=== PATIENT | female | born 1940 | race Caucasian/White ===

== ENCOUNTER → 2018-03-03 | Outpatient (CLI) | payer MEDICARE ==
--- NOTE | 2018-03-03 11:53 | EST ---
EXERCISE STRESS DATE OF SERVICE: 03/03/2018 AGE: 77 SEX: Female HT: 5'5" WT: 163 PROTOCOL: STAGE: II DURATION OF EXERCISE: 6 minutes HEART RATE REST: 49 BLOOD PRESSURE REST: 126/51 MAXIMUM HEART RATE ACHIEVED: 107 MAXIMUM BLOOD PRESSURE: 165/86 85% MPHR: 122 100% MPHR: 144 METS: 7 INDICATIONS: Abnormal EKG. CLINICAL INFORMATION: Baseline EKG shows sinus bradycardia, normal axis, normal intervals. Patient exercised on Curt protocol for a total of 6 minutes achieving 7 METs, 74% of predicted maximal heart rate without chest pain or diagnostic ST-segment depression. The test was stopped at this level secondary to inability to exercise further. CONCLUSIONS: 1. Limited exercise tolerance. 2. Inconclusive EKG part of the stress test due to inability to attain target heart rate. MMODL / IJN: [id number] /
== END | disposition home or self-care (01) ==
LOC: RADNMMAIN 11:05
PROVIDERS: ATTEND Nurse Practitioner Family
DX: R93.1 Abnormal findings on diagnostic imaging of heart and coronary circulation (principal)
CPT/HCPCS: 93017

== ENCOUNTER 2018-03-07 18:22 | Emergency (ER) | payer MEDICARE ==
[2018-03-07 19:01] VITALS: RESP 16; TEMP 98.3
[2018-03-07] MEDS ORDERED: BACITRACIN OINT 1 EACH PACKET TOPICAL ONE (20:27)
--- NOTE | 2018-03-07 20:36 | ED ---
Lower Extremity Injury HPI - General Chief Complaint: Extremity Injury, Lower Stated Complaint: abrasion left leg (fell thru a deck) Time Seen by Provider: 03/07/18 20:24 Source: patient, RN notes reviewed Mode of arrival: wheelchair Limitations: no limitations - History of Present Illness Initial Comments: 77-year-old female sent emergency Department chief complaint of left leg injury. Patient states that she fell through a rotten board on her deck. She states that she fell up until she fell onto the ground just above her knee. She states her tetanus is up-to-date within last 6 months. Patient states she has abrasions on either side of her knee but she states she has mild knee discomfort. Patient denies any other injuries. - Related Data Allergies Allergy/AdvReac Type Severity Reaction Status Date / Time No Known Allergies Allergy Verified 03/07/18 18:57 Review of Systems ROS Statement: Those systems with pertinent positive or pertinent negative responses have been documented in the HPI. ROS Other: All systems not noted in ROS Statement are negative. Past Medical History Past Medical History: Hyperlipidemia History of Any Multi-Drug Resistant Organisms: None Reported Past Surgical History: Hysterectomy, Orthopedic Surgery Additional Past Surgical History / Comment(s): bladder susprension, B hand, L knee Past Psychological History: Depression Smoking Status: Former smoker Past Alcohol Use History: Rare Past Drug Use History: None Reported General Exam Limitations: no limitations General appearance: alert, in no apparent distress Neck exam: Present: normal inspection. Absent: tenderness, meningismus, lymphadenopathy Respiratory exam: Present: normal lung sounds bilaterally. Absent: respiratory distress, wheezes, rales, rhonchi, stridor Cardiovascular Exam: Present: regular rate, normal rhythm, normal heart sounds. Absent: systolic murmur, diastolic murmur, rubs, gallop, clicks Extremities exam: Present: other (Left leg there are superficial abrasions on the medial and lateral aspect of her knee there is no active bleeding patient is full range of motion of her knee there is mild ecchymosis noted leg is neurovascularly intact.) Skin exam: Present: warm, dry Course Vital Signs 03/07/18 18:57 Temperature 98.3 F Pulse Rate 54 L Respiratory 16 Rate Blood Pressure 136/61 O2 Sat by Pulse 98 Oximetry Medical Decision Making - Medical Decision Making 77-year-old female presented for left leg injury. Patient had x-rays show no acute injury or fracture to her left knee. Patient has superficial abrasions which are cleaned bacitracin applied. Patient will continue wound care at home and return for any worsening symptoms. Disposition Clinical Impression: Abrasion of leg, left, Contusion of knee Disposition: HOME SELF-CARE Condition: Stable Instructions: Abrasion (ED) Additional Instructions: Please return to the Emergency Department if symptoms worsen or any other concerns. Is patient prescribed a controlled substance at d/c from ED?: No Referrals: Jamel Macdonald MD [Primary Care Provider] - 1-2 days Time of Disposition: 20:59
--- NOTE | 2018-03-07 20:47 | XR ---
EXAMINATION TYPE: XR knee complete LT DATE OF EXAM: 03/07/2018 COMPARISON: None HISTORY: Pain TECHNIQUE: 3 view left knee FINDINGS: No acute fractures are evident. No significant joint effusion is evident. Joint spaces are preserved. IMPRESSION: 1. Normal three-view left knee. 2. Follow-up exam can be performed 7-10 days from acute trauma for continued pain.
[2018-03-07 21:24] VITALS: BP 125/91; PULSE 53
== END 2018-03-07 21:26 | disposition home or self-care (01) ==
LOC: EC 18:22
DX: S80.02XA Contusion of left knee, initial encounter (principal); S80.812A Abrasion, left lower leg, initial encounter; Z98.890 Other specified postprocedural states; Z87.891 Personal history of nicotine dependence; W19.XXXA Unspecified fall, initial encounter; Y92.89 Other specified places as the place of occurrence of the external cause
CPT/HCPCS: 99283

== ENCOUNTER → 2018-03-16 | Outpatient (CLI) | payer MEDICARE ==
[~2018-03-16] MED LIST: REGADENOSON 0.4 MG/5 ML SYRINGE IV ONE
--- NOTE | 2018-03-16 11:30 | EST ---
EXERCISE STRESS DATE OF SERVICE: 03/16/2018 AGE: 77 SEX: Female HT: WT: PROTOCOL: Lexiscan Cardiolite STAGE: DURATION OF EXERCISE: HEART RATE REST: 48 BLOOD PRESSURE REST: 118/52 MAXIMUM HEART RATE ACHIEVED: 71 MAXIMUM BLOOD PRESSURE: 123/49 85% MPHR: 122 100% MPHR: 144 METS: INDICATION OF THE STUDY: Chest discomfort. CLINICAL INFORMATION: STRESS DATA: Pretesting physical examination showed a heart rate of 48, pressure is 118/52 mmHg. Baseline EKG showed sinus mechanism. A 0.4 mg of Lexiscan was given over 15 seconds per protocol. The max heart rate was 71 beats per minute and maximum pressure was 123/49 mmHg. Clinically the patient did not have any symptoms and the EKG did not show any significant ST or T-wave abnormalities concerning for ischemia. CONCLUSION: 1. Nondiagnostic electrocardiogram stress testing in response to Lexiscan. 2. Please follow up on the Cardiolite portion on separate report from radiology department. MMODL / IJN: [id number] /
--- NOTE | 2018-03-16 12:14 | NM ---
EXAMINATION TYPE: NM stress lexiscan cardiolite DATE OF EXAM: 03/16/2018 COMPARISON: NONE HISTORY: Abnormal EKG. Hyperlipidemia. TECHNIQUE: After the intravenous administration of 9.92 mCi Tc 99m Sestamibi - Cardiolite resting SP ECT images acquired 45 minutes post injection. The patient received 0.4mg Lexiscan, 26.8 mCi Tc 99m Sestamibi - Stress images obtained [address] injection FINDINGS: Review of stress and rest SPECT images demonstrates no reversible or fixed distinct perfusion abnorma lity. Minimal physiologic ventricular apical thinning is seen. Gated analysis shows normal wall ami on with an estimated left ventricular ejection fraction of 68 %. TID is likely within normal limits a t 0.93. IMPRESSION: No scintigraphic evidence for reversible ischemia. Estimated left ventricular ejection fraction of 68 %.
== END | disposition home or self-care (01) ==
LOC: RADNMMAIN 08:12
PROVIDERS: ATTEND Internal Medicine Geriatric Medicine
DX: R94.39 Abnormal result of other cardiovascular function study (principal)
CPT/HCPCS: 93017; 78452; A9500; J2785

== ENCOUNTER → 2019-06-29 | Outpatient (CLI) | payer MEDICARE ==
--- NOTE | 2019-06-29 13:06 | BD ---
EXAMINATION TYPE: Axial Bone Density DATE OF EXAM: 06/29/2019 COMPARISON: 06.16.2013 CLINICAL HISTORY: 79 YR OLD FEMALE....ICD-10 CODE: M81.0 OSTEOPOROSIS Height: 63.4 Weight: 166 FRAX RISK QUESTIONS: NOTHING ADDITIONAL TO NOTE HERE RISK FACTORS HISTORY OF: Hip Fracture PELVIS, 2005 Family History of Osteoporosis: YES, HER SISTER, NO FX Diet low in dairy products/other sources of calcium: YES Postmenopausal woman: YES, TOTAL HYRST AT 58 YRS OLD Lost more than 2 inches in height since high school: YES Hyperparathyroidism: NO Adrenal Insufficiency: NO MEDICATIONS: Additional Medications: CELEXA, XANAZ PRN, REFLUX MEDS, STATIN FOR CHOLESTEROL, CALCIUM WITH D AND MU LTIVITAMIN Additional History: REFLUX, CHOLESTEROL, ANXIETY EXAM MEASUREMENTS: Bone mineral densitometry was performed using the [employer] System. Bone mineral density as measured about the Lumbar spine is: ----- L1-L4(G/cm2): 0.992 T Score Values are as follows: ----- L1: -2.3 ----- L2: -2.0 ----- L3: -1.4 ----- L4: -0.9 ----- L1-L4: -1.6 Bone mineral density has: Increased 2.9% since study of: 06.16.2013 Bone mineral density about the R hip (g/cm2): 0.859 Bone mineral density about the L hip (g/cm2): 0.950 T Score values are as follows: -----R Neck: -1.0 -----L Neck: -0.9 -----R Total: -1.2 -----L Total: -0.5 Bone mineral density has: Decreased -5.1% since study of: 06.16.2013 FRAX%s: THERE IS A 16.2% CHANCE FOR A MAJOR OSTEOPOROTIC FX AND A 2.6% FOR HIP.....PROBABILITY FOR FX IN 10 YRS TIME IMPRESSION: Osteopenia lumbar spine. NOTE: T-SCORE=SD OF THE YOUNG ADULT MEAN.
--- NOTE | 2019-06-30 13:23 | MM ---
Reason for exam: screening (asymptomatic). Last mammogram was performed 3 years and 1 month ago. History: Patient is postmenopausal. Family history of breast cancer in sister at age 47 and breast cancer in mother. Took estrogen for 4 years beginning at age 57. Physical Findings: A clinical breast exam by your physician is recommended on an annual basis and results should be correlated with mammographic findings. MG 3D Screening Mammo W/Cad Bilateral CC, MLO, and XCCL view(s) were taken. Prior study comparison: June 11, 2016, bilateral MG 3d screening mammo w/cad. June 16, 2013, bilateral digital screening mammo w/CAD. There are scattered fibroglandular densities. No significant changes when compared with prior studies. ASSESSMENT: Benign, BI-RAD 2 RECOMMENDATION: Routine screening mammogram of both breasts in 1 year.
== END | disposition home or self-care (01) ==
LOC: RADMAMWWP 08:48
PROVIDERS: ATTEND Internal Medicine Geriatric Medicine
DX: Z12.31 Encounter for screening mammogram for malignant neoplasm of breast (principal); M85.88 Other specified disorders of bone density and structure, other site
CPT/HCPCS: 77063; 77067; 77080

== ENCOUNTER 2019-09-03 07:20 | Day surgery (SDC) | payer MEDICARE ==
[2019-09-01 14:10] VITALS: BMI 27.3
[~2019-09-03 07:20] MED LIST changes: +LACTATED RINGERS 1,000 ML IV SCH; -REGADENOSON 0.4 MG/5 ML SYRINGE IV ONE
[2019-09-03] MEDS ORDERED: LIDOCAINE 1% 20 ML VIAL (10MG/ML) FOR IV START INTRADERMA ONE (07:49)
[2019-09-03 07:52] VITALS: RESP 16; TEMP 97.5
[2019-09-03] MEDS ORDERED: LIDOCAINE 1% INJ 10MG/ML (20 ML MDV) ONE (08:27)
[2019-09-03] MEDS ORDERED: PROPOFOL 10 MG/ML 20 ML VIAL IV ONE (08:27)
--- NOTE | 2019-09-03 08:47 | P.PCN ---
Date of Procedure: 09/03/19 Procedure(s) Performed: BRIEF HISTORY: Patient is a 79-year-old pleasant white female scheduled for an elective colonoscopy as a part of evaluation of positive cologuard: PROCEDURE PERFORMED: Colonoscopy. PREOPERATIVE DIAGNOSIS: Positive cologuard. IV sedation per Anesthesia. PROCEDURE: After informed consent was obtained, the patient, was brought into the endoscopy unit. IV sedation was administered by Anesthesia under continuous monitoring. Digital rectal examination was normal. Initially the Olympus CF-160 flexible video colonoscope was then inserted in the rectum, gradually advanced into the cecum without any difficulty. Careful examination was performed as the scope was gradually being withdrawn. Ileocecal valve and the appendiceal orifice were visualized and appeared normal. Prep was excellent. Mucosa of the cecum, ascending colon, transverse colon, descending colon, sigmoid colon, and rectum appeared normal. Retroflexion was performed in the rectum and no lesions were seen. Scattered sigmoid diverticula seen. The patient tolerated the procedure well. IMPRESSION: Normal-appearing colon from rectum to cecum with no evidence of colorectal neoplasia Scattered sigmoid diverticulosis. RECOMMENDATIONS: Findings of this examination were discussed with the patient as well as her family. She was advised to be a high-fiber diet and fiber supplements as needed
[2019-09-03 09:09] VITALS: BP 130/77; PULSE 50
== END 2019-09-03 09:26 | disposition home or self-care (01) ==
LOC: ORWHC2ENDO 07:20
PROVIDERS: ATTEND Internal Medicine Gastroenterology
DX: K57.30 Diverticulosis of large intestine without perforation or abscess without bleeding (principal); E78.5 Hyperlipidemia, unspecified; F32.9 Major depressive disorder, single episode, unspecified; Z79.82 Long term (current) use of aspirin; Z79.899 Other long term (current) drug therapy
CPT/HCPCS: 45378; J2001; J2704

== ENCOUNTER → 2020-08-02 | Outpatient (CLI) | payer MEDICARE ==
--- NOTE | 2020-08-02 15:00 | US ---
EXAMINATION TYPE: US carotid duplex BILAT DATE OF EXAM: 08/02/2020 COMPARISON: NONE CLINICAL HISTORY: 80-year-old female R42 dizziness. Pt states vertigo TECHNIQUE: Carotid duplex ultrasound examination. Indirect Doppler criteria was utilized. FINDINGS: EXAM MEASUREMENTS: RIGHT: Peak Systolic Velocity (PSV) cm/sec ----- Right CCA: 63.7 ----- Right ICA: 127 ----- Right ECA: 87.8 ICA/CCA ratio: 2.0 RIGHT: End Diastole cm/sec ----- Right CCA: 14.4 ----- Right ICA: 30.8 ----- Right ECA: 12.6 LEFT: Peak Systolic Velocity (PSV) cm/sec ----- Left CCA: 71.9 ----- Left ICA: 93.5 ----- Left ECA: 89.9 ICA/CCA ratio: 1.3 LEFT: End Diastole cm/sec ----- Left CCA: 17.0 ----- Left ICA: 24.7 ----- Left ECA: 11.8 VERTEBRALS (direction of flow): Right Vertebral: Antegrade Left Vertebral: Antegrade Rhythm: Normal No significant stenosis seen, slightly elevated velocities right ICA Incidental: Heterogeneous enlarged appearance to the right lobe of the thyroid gland with underlyin g nodules. Dedicated thyroid ultrasound can further evaluate. IMPRESSION: 1. Mildly elevated velocities within the right ICA could reflect a 50-69% moderate stenosis. 2. Heterogeneous nodular appearance to the right lobe of the thyroid gland. Dedicated thyroid ultraso und recommended to characterize any discrete underlying nodules. Criteria for Assigning % of Stenosis / Diameter reduction (Estimation based on the indirect measurements of the internal carotid artery velocities (ICA PSV). 1. Normal (no stenosis)=ICA PSV < 125 cm/s: ratio < 2.0: ICA EDV<40 cm/s. 2. Less than 50% stenosis=ICA PSV < 125 cm/s: ratio < 2.0: ICA EDV<40 cm/s. 3. 50 to 69% stenosis=ICA PSV of 125 to 230 cm/s: ration 2.0 ? 4.0: ICA EDV 40-100 cm/s. 4. Greater than 70% stenosis to near occlusion= ICA PSV > 230 cm/s: ratio > 4.0: ICA EDV > 100 cm/s. 5. Near occlusion= ICA PSV velocities may be low or undetectable: variable ratio and ICA EDV. 6. Total occlusion=unable to detect flow.
== END | disposition home or self-care (01) ==
LOC: RADUSWWP 12:25
PROVIDERS: ATTEND Internal Medicine Geriatric Medicine
DX: I65.21 Occlusion and stenosis of right carotid artery (principal); R93.89 Abnormal findings on diagnostic imaging of other specified body structures
CPT/HCPCS: 93880